=== PATIENT | female | born 2000 | race Caucasian/White ===

== ENCOUNTER 2024-02-01 06:25 | Inpatient (IN) | payer BC, SELFPAY ==
[2024-02-01] VITALS (45 sets, daily range): BP systolic 93–133; BP diastolic 52–76; PULSE 60–124; RESP 16–18; TEMP 36.9–37.7; O2SAT 81–100; BMI 25.7
[2024-02-01 06:46] LABS: Absolute Lymphocyte Count 2.02 X10^3/uL (0.83-4.51); Absolute Neutrophil Count 6.4 X10^3/uL (2.0-7.7); Basophil# 0.03 X10^3/uL; Basophil% 0.3 % (0-1); Eosinophil# 0.06 X10^3/uL; Eosinophils% 0.7 % (0-5); Hematocrit 33.9 % (37-47); Hemoglobin 11.3 g/dL (12.0-15.0); Lymphocyte # 2.02 X10^3/ul (0.83-4.51); Lymphocyte % 22.2 % (19-41); Mean Corp Hgb Conc 33.3 g/dL (32-36); Mean Corpuscular Hgb 30.2 pg (27.0-32.0); Mean Corpuscular Volume 90.6 fL (81-99); Monocyte# 0.61 X10^3/uL; Monocyte% 6.7 % (0-10); NRBC Flagged by Analyzer 0 % (0-5); Neutrophil # 6.36 X10^3/uL (2.7-7.7); Neutrophil % 69.8 % (47-70); Platelet Count 147 K/mm3 (150-450); RBC Distribution Width CV 13.2 % (11.6-14.6); RBC Distribution Width SD 42.9 fl (35.1-43.9); Red Blood Count 3.74 M/mm3 (4.2-5.4); White Blood Count 9.1 K/mm3 (4.4-11.0)
--- NOTE | 2024-02-01 07:00 | PCM.HP.OB ---
HPI - General General Date of Admission: 02/01/24 HPI Narrative CRISTIAN TURCIOS, is a 23 F who presents at 40w3d, presents in active labor. Upon arrival advanced dilation of 9.5cm and coping well with contractions. PFSH PFS Medical History (Updated 02/01/24 @ 09:25 by Elise Harp CNM) Depression Anxiety Home Medications ?Medication ?Instructions ?Recorded ?Last Taken ?Type vit no.95-ferrous 1 tab PO DAILY 02/01/24 01/31/24 History fumarate 28 mg-folic acid 800 mcg tablet () Allergy/AdvReac Type Severity Reaction Status Date / Time peach Allergy Severe Anaphylaxis Verified 02/01/24 06:21 Surgical History (Updated 02/01/24 @ 09:23 by Jonnie Gallagher) History of surgery History Elective abortions Hx Para 0 Spontaneous abortions Hx # Term Pregnancies Ectopic pregnancies Hx # Pregnancies Multiple births # of living children NST FHR Rate Baby A Baseline: 115 Variability:: Moderate Accelerations:: 15 x 15 Decelerations:: None NST Reactive:: Yes FHR Category:: Category I Uterine Activity:: Every 2-3 minutes strong ROS Constitutional Constitutional: Reports systems reviewed and no addt'l complaints, except as documented; Denies headache(s) Eyes Eyes: Denies acute decrease in peripheral vision, blurry vision or change in vision ENT HEENT: Reports systems reviewed and no addt'l complaints, except as documented Cardiovascular Cardiovascular: Denies chest pain or dizziness Respiratory/Chest Respiratory/Chest: Denies cough, dyspnea, dyspnea on exertion, shortness of breath at rest or shortness of breath with exertion Gastrointestinal Gastrointestinal: Denies abdominal pain, diarrhea, nausea or vomiting Genitourinary Genitourinary: Denies abdominal discomfort Musculoskeletal Musculoskeletal: Denies limited range of motion Integumentary Integumentary: Reports systems reviewed and no addt'l complaints, except as documented Neurologic Neurologic: Reports systems reviewed and no addt'l complaints, except as documented Psychiatric Psychiatric: Reports systems reviewed and no addt'l complaints, except as documented Endocrine Endocrinology: Reports systems reviewed and no addt'l complaints, except as documented Hematologic/Lymphatic Hematologic/Lymphatic: Reports systems reviewed and no addt'l complaints, except as documented Allergic/Immunologic Allergic/Immunologic: Reports systems reviewed and no addt'l complaints, except as documented Vital Signs Vital Signs Vital Signs: 02/01/24 06:17 02/01/24 06:17 02/01/24 06:18 Pulse Rate 65 Blood Pressure 133/76 H BP Systolic 133 BP Diastolic 76 Pulse Ox 85 02/01/24 06:18 02/01/24 06:50 02/01/24 06:50 Pulse Rate 67 70 Blood Pressure BP Systolic BP Diastolic Pulse Ox 98 Weight Weight: 149 lb 14.629 oz Body Mass Index (BMI) 25.7 Physical Exam Const alert and oriented x3 General Appearance: cooperative Orientation / Consciousness: awake, oriented to person, oriented to place and oriented to time Exam Limitations: no limitations HEENT normocephalic Head and Scalp: normal to inspection, normocephalic and atraumatic Face and Sinus: normal facial exam Eyes General Eye: normal appearance of both eyes Neck full ROM Chest Chest: symmetrical chest wall rise Resp normal respiratory effort and normal air movement Auscultation: clear to auscultation bilaterally Cardio regular rate, regular rhythm, S1 normal heart sound, S2 normal heart sound, no murmurs, no rub, no gallops and no clicks GI normal to inspection, nondistended, normoactive bowel sounds and non-tender appearance of the vagina normal Bladder / Kidney Exam: no CVA tenderness Manual OB Exam: estimated gestational size appropriate, presentation cephalic, dilated 10cm, effaced 100%, station +2 and other SROM at bedside Back/Spine normal ROM Extremity normal to inspection and full ROM Skin no rashes or lesions noted Neuro oriented x3, CN's II-XII intact bilaterally and moves all extremities Sensorium / Orientation: awake, alert and oriented to person Motor Exam: clonus absent Deep Tendon Reflexes: Rt Patellar (L4): 2+ and Lt Patellar (L4): 2+ Labs Labs Labs: Blood Type A POSITIVE Antibody Screen NEGATIVE Hct 33.9 % (37-47) L Hgb 11.3 g/dL (12.0-15.0) L Syphilis Total Ab Non-reactive HIV negative RPR negative HepC negative HBsAG negative GBS negative A positive Rubella Immune GC/CT negative Assessment & Plan (1) Active labor at term: (2) Depression: PLAN: Plan 1) Admit to labor and delivery 2) Routine labs 3) IA, Category 1 FHT 4) Requesting tub for water labor and , consent to be signed 5) collaborative physician and notified of patient status, above assessment, and plan.
[2024-02-01] MEDS: Oxytocin 10 UNITS/ML Vial IM (08:09)
[2024-02-01 08:37] LABS: Syphilis Antibodies Non-reactive
--- NOTE | 2024-02-01 08:54 | EX.PCM.OBRPT ---
Assessment & Plan (1) Vaginal delivery: (2) Tear of periurethral tissue with delivery: (3) Lactating mother: Vaginal Delivery Maternal Presentation Maternal Presentation: Active Labor Operative Information Date of Procedure: 02/01/24 Pre-Operative Diagnosis: Active Labor Post-Operative Diagnosis: , precipitous , Waterbirth Surgery / Procedure Performed: Spontaneous Vaginal Delivery Type of Anesthesia: None Estimated Blood Loss: 300 ml Time of Delivery: 08:02 Findings Description of Procedure: Labored in tub, unmedicated. Shiloh Johnson CNM present for delivery. Progressed to complete with urge to push. of viable female over periurethral bilateral laceration. APGARS 9,9 respectively. Infant head delivered in water with body immediately forthcoming. Gently raised to water surface and placed on maternal abdomen, strong cry. Mouth and nares wiped for secretions. Pitocin started for active 3rd stage management. Cord doubly clamped and cut by FOB after pulsations ceased, delayed cord clamping. Exited tub and transferred to bed. Placenta delivered intact via jalloh , 3 vessel cord intact. Perineum inspected and revealed bilateral perineal laceration. Repaired with 3.0 vicryl rapide and consented without lidocaine. Fundus firm and hemostasis achieved. EBL 300ml. Mom and baby stable, planning to breastfeed. Family bonding well. Dr. Jean Baptiste notified of delivery. Presentation: Vertex Amniotic Membrane Rupture Type: Spontaneous (fore bag ruptured) Amniotic Fluid Description: Clear Placental Delivery Description: Spontaneous Placenta Disposition: [facility] Cord Vessel Description: 3 Vessels Cord Entanglement: None Infant A Gender: Female (1 minute): 9 (5 minute): 9 Delayed Cord Clamping: Yes Post Vaginal Delivery Medications Given After Delivery: IM Pitocin Episiotomy Description: None Laceration: Periurethral Extnsion/lac and 1st degree Complication Complications: None
--- NOTE | 2024-02-01 11:20 | CASEMGMT ---
Social Work Assessment Labor and Delivery Unit Patient Address: [address] [place] [address]. [place] [id number] Phone number: [phone] Date of Referral: 02/01/24 Time of Referral:? 921 Referred By: Elise Harp Date of Intervention: ??02/01/24 Time of Intervention:? 1029 Reason for Referral:? Family history of alcoholism Susu completed chart review and acknowledges social work consult due to family history of alcoholism. Sw presented to bedside and introduced self to mother of baby (MOB- Juwan) and father of baby (FOB- Braydon). MOB also had a visitor present, Rossy, whom MOB reports is her best friend and maternal grandma. MOB stated that it was okay for visitors to be present while susu conducted psychosocial assessment, however partway through assessment maternal grandmother excused herself. History obtained from: medical records, MOB and FOB Household composition: Currently residing in the family home is PETER, RYLEE, RYLEE's son Juliane (7 years old) and baby when ready for discharge. Patient's parent/guardian status:? ?PETER states that she and FOLeti have been together for one year, they were introduced to each other by mutual friends. PETER initially denied that she and FOB were , however when maternal grandma excused herself, MOB disclosed that she and FOB are officially but they haven't told their families yet. PETER denies any concerns of domestic violence or intimate partner violence. Medical History: PETER is 23 year old female who is 1, para 0- now 1 following labor and delivery of . PETER received routine care during with [facility]. PETER shared her story with susu. PETER states that her labor started at home around 0130, she arrived to hospital around 0630 and was already 9.5 centimeters. PETER consented to water . She got in the tub around 0700 and baby was born shortly after 0800 via vaginal delivery at 40 weeks gestation. PETER states that she was able to get the unmedicated labor that she wanted, and loved that she was able to be the first water at the hospital. Baby girl, named Ambar Horner, was born weighing 6lb 9oz. PETER is breast feeding and states that it is going well. Baby will be followed by Dr. Baca for pediatrics. ? Educational Status:?Both parents graduated from high school, RYLEE obtained some college courses but did not graduate. No concerns with reading, learning or comprehension. Financial Status: RYLEE is gainfully employed outside of the home. RYLEE works as a Rail manager [employer] and is able to take 2 weeks off of work for paternity leave. 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 Infant Supplies:?? Parents report to obtaining all necessary baby items, including: car seat, safe sleep space, clothes, diapers and wipes. Childcare/Caregiver(s):? PETER will be the primary caregiver to baby along with RYLEE when he is not working. Transportation:?? Both parents have their drivers license and reliable means of transportation, no barriers. Programs/Agencies Involved: ???PETER states that she is not currently connected to any community agencies that help her financially as they are over income. Children Services/Legal Issues:??No history of involvement, no issues or concerns warranting referral to be made at this time. ? Behavioral Health Issues: ??Mental Health History: RYLEE states that he does have a mental health history. RYLEE has been diagnosed with anxiety, depression, PTSD and BiPolar. RYLEE was previously connected to mental health services at [facility], but states that he is mindful of his mental health, knows and utilizes healthy and appropriate coping mechanisms. ?MOB reports that she has been diagnosed with anxiety, depression and borderline personality disorder. MOB states that she is not prescribed medications and is not connected to any mental health services or supports at this time. PETER reports that she likes to do artistic things to cope whenever she feels that she may be struggling with her mental health. ?? Substance Use History: Both parents deny substance use prior to or during . ?? Family History:?MOB states that her father is an alcoholic. PETER reports that she is not close with her dad and he will not be a caregiver to baby. ? Drug Screens: ??No urine screens observed in chart review. Family/Social Stressors:? Parents deny any issues or concerns at this time. Support Systems: PETER identifies RYLEE, her friend Rossy and paternal grandparents as her biggest supports. Depression/Shaken Baby/Safe Sleeping:? Sw educated parents on signs and symptoms of baby blues and depression and anxiety. Parents express understanding. MOB states that FOB is her biggest advocate and support person, although they have only been together for a year he is able to recognize when she is struggling and knows how to calm and comfort her. Sw educated parents on shaken baby prevention and ABCs of safe sleep. Parents express understanding. ASSESSMENT:? MOB and baby admitted following labor and delivery of . MOB and FOB with mental health history, have natural supports in place and know how to get in contact with mental health professionals if they feel they are struggling and need professional support/ guidance. MOB and FOB observed to have good supportive relationship. MOB observed to be attentive to baby and holding her in loving manner. Parents have obtained all necessary baby supplies. PLAN:? MOB and baby to be discharged when medically ready ?No other services requested or indicated. Sonny Olson, GEAR HOBBER, SHAKE LOADER
[2024-02-01] MEDS: Ibuprofen 600 MG Tablet PO (13:43)
[2024-02-01] MEDS: Acetaminophen 500 MG Tablet 1000 MG PO (17:49)
[2024-02-02] MEDS: Ibuprofen 600 MG Tablet PO (02:33)
[2024-02-02 05:00] VITALS: BP 112/74; PULSE 66; RESP 16; TEMP 37.1; O2SAT 100
[2024-02-02 05:03] VITALS: BP 112/74; PULSE 71
[2024-02-02 05:25] LABS: Absolute Lymphocyte Count 1.65 X10^3/uL (0.83-4.51); Absolute Neutrophil Count 8.5 X10^3/uL (2.0-7.7); Basophil# 0.03 X10^3/uL; Basophil% 0.3 % (0-1); Eosinophil# 0.07 X10^3/uL; Eosinophils% 0.6 % (0-5); Hematocrit 30.6 % (37-47); Hemoglobin 10.1 g/dL (12.0-15.0); Lymphocyte # 1.65 X10^3/ul (0.83-4.51); Mean Corpuscular Hgb 30.7 pg (27.0-32.0); Mean Platelet Vol. 12.2 fl (6.2-12.0); Monocyte# 0.71 X10^3/uL; Monocyte% 6.5 % (0-10); NRBC Flagged by Analyzer 0 % (0-5); Neutrophil # 8.48 X10^3/uL (2.7-7.7); Neutrophil % 77.1 % (47-70); Platelet Count 136 K/mm3 (150-450); RBC Distribution Width CV 13.3 % (11.6-14.6); RBC Distribution Width SD 45.1 fl (35.1-43.9); Red Blood Count 3.29 M/mm3 (4.2-5.4)
[2024-02-02 08:19] VITALS: BP 102/55; BP 105/55; PULSE 56; PULSE 66; RESP 16; TEMP 37.2; O2SAT 98
--- NOTE | 2024-02-02 11:14 | PCM.PN.OB ---
Subjective Subjective Doing well per patient and nursing staff. Ambulating and taking PO without difficulty. Voiding and passing flatus. Pain controlled. , services for assistance. Denies headache, visual changes, chest pain, shortness of breath, leg pain or increased bleeding. Lochia normal. Objective Data Objective Data Vital Signs: Vital Signs Temp Pulse Resp BP Pulse Ox O2 Del Method 98.9 F 56 L 16 102/55 L 98 Room Air 02/02/24 08:19 02/02/24 08:19 02/02/24 08:19 02/02/24 08:19 02/02/24 08:19 02/02/24 08:19 Oxygen Delivery Method Room Air Weight: 149 lb 14.629 oz Body Mass Index (BMI) 25.7 Intake & Output: Intake and Output for Last 24 Hours 01/31/24 02/01/24 02/02/24 23:59 23:59 23:59 Output Total 1300 / 1300 Balance -1300 / -1300 Lab / Micro Data 02/02/24 05:05 Labs: Laboratory Results - last 24 hr 02/02/24 05:05: WBC 11.0, RBC 3.29 L, Hgb 10.1 L, Hct 30.6 L, MCV 93.0, MCH 30.7, MCHC 33.0, RDW Std Deviation 45.1 H, RDW Coeff of Mesha 13.3, Plt Count 136 L, MPV 12.2 H, Immature Gran % (Auto) 0.500, Neut % (Auto) 77.1 H, Lymph % (Auto) 15.0 L, [place] % (Auto) 6.5, Eos % (Auto) 0.6, Baso % (Auto) 0.3, Absolute Neuts (auto) 8.5 H, Absolute Lymphs (auto) 1.65, Nucleated RBC % 0 ROS Constitutional Constitutional: Reports systems reviewed and no addt'l complaints, except as documented; Denies headache(s) Eyes Eyes: Denies acute decrease in peripheral vision, blurry vision or change in vision ENT HEENT: Reports systems reviewed and no addt'l complaints, except as documented Cardiovascular Cardiovascular: Denies chest pain or dizziness Respiratory/Chest Respiratory/Chest: Denies cough, dyspnea, dyspnea on exertion, shortness of breath at rest or shortness of breath with exertion Gastrointestinal Gastrointestinal: Denies abdominal pain, diarrhea, nausea or vomiting Genitourinary Genitourinary: Denies abdominal discomfort Musculoskeletal Musculoskeletal: Denies limited range of motion Integumentary Integumentary: Reports systems reviewed and no addt'l complaints, except as documented Neurologic Neurologic: Reports systems reviewed and no addt'l complaints, except as documented Psychiatric Psychiatric: Reports systems reviewed and no addt'l complaints, except as documented Endocrine Endocrinology: Reports systems reviewed and no addt'l complaints, except as documented Hematologic/Lymphatic Hematologic/Lymphatic: Reports systems reviewed and no addt'l complaints, except as documented Allergic/Immunologic Allergic/Immunologic: Reports systems reviewed and no addt'l complaints, except as documented Physical Exam Const alert and oriented x3 General Appearance: cooperative Orientation / Consciousness: awake, oriented to person, oriented to place and oriented to time Exam Limitations: no limitations HEENT normocephalic Head and Scalp: normal to inspection, normocephalic and atraumatic Face and Sinus: normal facial exam Eyes General Eye: normal appearance of both eyes Neck full ROM Chest Chest: symmetrical chest wall rise Resp normal respiratory effort and normal air movement Auscultation: clear to auscultation bilaterally Cardio regular rate, regular rhythm, S1 normal heart sound, S2 normal heart sound, no murmurs, no rub, no gallops and no clicks GI normal to inspection, nondistended, normoactive bowel sounds and non-tender appearance of the vagina normal Bladder / Kidney Exam: no CVA tenderness Back/Spine normal ROM Extremity normal to inspection and full ROM Skin no rashes or lesions noted Neuro oriented x3, CN's II-XII intact bilaterally and moves all extremities Sensorium / Orientation: awake, alert and oriented to person Motor Exam: clonus absent Deep Tendon Reflexes: Rt Patellar (L4): 2+ and Lt Patellar (L4): 2+ Assessment & Plan (1) Tear of periurethral tissue with delivery: (2) Lactating mother: (3) Vaginal delivery: (4) Depression: PLAN: Plan 1) Routine PP care 2) Pain management 3) services 4) Vitals stable 5) Follow up in 2 weeks and 6 weeks PP 6) D/C home
--- NOTE | 2024-02-02 11:14 | PCM.DC.SUM ---
Providers Date of Admission: 02/01/24 Primary Care Physician: Rika Primary Care Phys Reason For Visit: VAGINAL DELIVERY Diagnosis Discharge Diagnosis (1) Active labor at term: Status: Acute (2) Depression: Status: Acute Code(s): F32.A - Depression, unspecified Plan 1) Admit to labor and delivery 2) Routine labs 3) IA, Category 1 FHT 4) Requesting tub for water labor and , consent to be signed 5) [facility] physician and notified of patient status, above assessment, and plan. Medications at Discharge Home Medications vit no.95-ferrous fumarate 28 mg-folic acid 800 mcg tablet () 1 tab PO DAILY 02/01/24 acetaminophen 500 mg tablet 1,000 mg (2 x 500 mg) PO Q6H PRN PRN Pain 1-10 Or Fever #0 tabs 02/02/24 ibuprofen 600 mg tablet 600 mg PO Q6H PRN PRN Pain Score 1-10 #0 tabs 02/02/24 Hospital Course Summary of Care Provided Minutes Spent on Discharge: 15 Weight / BMI Weight Weight: 149 lb 14.629 oz Body Mass Index (BMI) 25.7 ABG / Lab / Microbiology Data 02/02/24 05:05 Laboratory: Laboratory Results - last 24 hr 02/02/24 05:05: WBC 11.0, RBC 3.29 L, Hgb 10.1 L, Hct 30.6 L, MCV 93.0, MCH 30.7, MCHC 33.0, RDW Std Deviation 45.1 H, RDW Coeff of Mesha 13.3, Plt Count 136 L, MPV 12.2 H, Immature Gran % (Auto) 0.500, Neut % (Auto) 77.1 H, Lymph % (Auto) 15.0 L, [place] % (Auto) 6.5, Eos % (Auto) 0.6, Baso % (Auto) 0.3, Absolute Neuts (auto) 8.5 H, Absolute Lymphs (auto) 1.65, Nucleated RBC % 0 D/C Instructions Discharge Diet: No restrictions Discharge Activity: Return to Normal Activity, May Drive, May Shower and May Take a Tub Bath May resume sexual activity in: 6 weeks Weight Bearing Status: Full weight bearing Lifting Restricted to (Lbs): 20 Call your doctor if you observe: Fever of 101 or Higher, Inability to urinate, Inability to have a bowel movement, Using more than 1 pad per hour, Shortness of breath, Dizziness, Fainting spells, Chest pain, Increased palpitations (irregular heartbeat), Calf discomfort and Uncontrolled pain Meaningful Use Info Meaningful Use Meaningful Use Diagnoses (Choose all that apply): None applicable Ischemic Stroke Statin Dosing Therapy Reference: STATIN DOSE THERAPY REFERENCE: * Patients > 75 years receive moderate or high dose statin therapy. * Patients 75 years or YOUNGER should receive HIGH intensity statin dose unless contraindicated. You will be required to document reason for non-treatment if statin daily dose does not meet guidelines. HIGH DOSE STATIN THERAPY DAILY Atorvastatin > than or = to 40 mg Rosuvastatin > than or = to 20 mg Amlodipine + Atorvastatin > than or = to 2.5/40 mg Ezetimibe + Simvastatin 10/80 mg Simvastatin 80mg Discharge Plan Admission Admit Date/Time: 02/01/24 06:25 Primary Reason for Your Visit: Vaginal Delivery Attending Provider: Elise Harp Primary Care Provider: Care Physician,No Primary Discharge Orders/Prescriptions Prescriptions: New acetaminophen 500 mg Tablet 1,000 mg PO Q6H PRN PRN (Reason: Pain 1-10 Or Fever) Qty: 0 0RF ibuprofen 600 mg Tablet 600 mg PO Q6H PRN PRN (Reason: Pain Score 1-10) Qty: 0 0RF Continued PNV cmb#95-ferrous fumarate-FA [] 28 mg iron- 800 mcg tablet 1 tab PO DAILY Referrals / Follow Up: Care Physician,No Primary [Primary Care Provider] - Disposition Disposition (needs filled in before D/C Order can be placed): Home, Self Care
[2024-02-02] MEDS: Senna/Docusate Sodium 1 Tablet PO (11:38)
[2024-02-03 11:29] VITALS: BP 99/64; PULSE 96
--- NOTE | 2024-03-31 08:13 | NURSING ---
Edited /para for accuracy
== END 2024-02-02 12:00 | disposition home or self-care (01) | DRG 807 ==
LOC: WP 06:29 → WPOUT 02-03 11:14 → WP 02-03 11:15
PROVIDERS: Admitting Provider Advanced Practice Midwife; Visit Provider Advanced Practice Midwife
DX: O42.02 Full-term premature rupture of membranes, onset of labor within 24 hours of rupture (principal); Z37.0 Single live birth; O62.3 Precipitate labor; O70.0 First degree perineal laceration during delivery; Z3A.40 40 weeks gestation of pregnancy
CPT/HCPCS: 59025; 59050; 85025; 86780; 86850; 86900; 86901; 99221; G0378